=== PATIENT | male | born 1990 | race Hispanic/Latino ===

== ENCOUNTER 2018-05-17 14:50 | Inpatient (IN) | payer OTHER ==
[~2018-05-17] VITALS: Ht 182.9 cm; Wt 91.6 kg
[2018-05-17 15:34] LABS: BASOPHILS % 0.3 % (0.0-1.0); EOSINOPHILS % 0.2 % (0.0-6.0); HEMATOCRIT 48.3 % (38.2-49.6); HEMOGLOBIN 16.6 g/dL (14.0-18.0); LYMPHOCYTES # (AUTO) 1.3 (1.0-3.2); LYMPHOCYTES % 14.1 % (18.0-39.1); MEAN CORPUSCULAR HEMOGLOBIN 30.3 pg (28-32); MEAN CORPUSCULAR HGB CONC 34.4 g/dL (31-35); MEAN CORPUSCULAR VOLUME 88.3 fL (81-99); MONOCYTES # (AUTO) 0.8 (0.2-0.8); MONOCYTES % 8.3 % (4.4-11.3); NEUTROPHILS # (AUTO) 7.1 (2.1-6.9); NEUTROPHILS % 76.8 % (38.7-80.0); PLATELET COUNT 209 x10e3/uL (140-360); RED BLOOD COUNT 5.47 x10e6/uL (4.3-5.7); RED CELL DISTRIBUTION WIDTH 12.8 % (11.7-14.4)
[2018-05-17 15:53] LABS: ALANINE AMINOTRANSFERASE 12 IU/L (0-55); ALBUMIN 4.6 g/dL (3.5-5.0); ALBUMIN/GLOBULIN RATIO 1.2 (0.8-2.0); ALKALINE PHOSPHATASE 70 IU/L (40-150); AMYLASE 66 U/L (25-125); ANION GAP 13.6 mmol/L (8-16); CALCIUM 9.9 mg/dL (8.4-10.2); CARBON DIOXIDE 27 mmol/L (22-29); CHLORIDE 99 mmol/L (98-107); CREATININE, SERUM 0.94 mg/dL (0.72-1.25); EST GLOMERULAR FILTRATION RATE > 60 ML/MIN (60-); GLUCOSE 95 mg/dL (74-118); LIPASE 54 U/L (8-78); POTASSIUM 3.6 mmol/L (3.5-5.1); SODIUM 136 mmol/L (136-145)
[2018-05-17 16:08] LABS: BLOOD UREA NITROGEN 9 mg/dL (7-26); BUN/CREATININE RATIO 10 (6-25)
[2018-05-17 16:15] LABS: CLARITY,URINE SL CLOUDY (CLEAR); COLOR,URINE YELLOW (YELLOW); LEUKOCYTE ESTERASE ,URINE NEGATIVE (NEGATIVE); NITRITE,URINE NEGATIVE (NEGATIVE)
[2018-05-17 16:16] LABS: BILIRUBIN,URINE NEGATIVE (NEGATIVE); KETONES,URINE NEGATIVE (NEGATIVE); PROTEIN,URINE DIPSTICK NEGATIVE (NEGATIVE); URINE UROBILINOGEN 0.2 mg/dL (0.2 - 1)
[2018-05-17 16:33] LABS: HYALINE CASTS 0-1 (0-1); MUCUS,URINE FEW (RARE); RBC,URINE 0-5 /HPF (0-5)
--- NOTE | 2018-05-17 17:44 | Diagnostic Imaging Report ---
EXAM: CT Abdomen and Pelvis WITH contrast INDICATION: \S\right lower abd pain- iv contrast only \[id number] \S\1700 COMPARISON: None. TECHNIQUE: Abdomen and pelvis were scanned utilizing a multidetector helical scanner from the lung base to the pubic symphysis after administration of IV contrast. Coronal and sagittal reformations were obtained. Routine protocol was performed. Scan was performed when during portal venous phase. IV CONTRAST: 100 mL of Isovue-370 ORAL CONTRAST: Water RADIATION DOSE: Total DLP: 492.3 mGy*cm Estimated effective dose: (DLP x 0.015 x size factor) mSv COMPLICATIONS: None FINDINGS: LINES and TUBES: None. LOWER THORAX: Unremarkable HEPATOBILIARY: No focal hepatic lesions. No biliary ductal dilation. GALLBLADDER: No radio-opaque stones or sludge. No wall thickening. SPLEEN: No splenomegaly. PANCREAS: No focal masses or ductal dilatation. ADRENALS: No adrenal nodules KIDNEYS/URETERS: Kidneys enhance symmetrically. No hydronephrosis. No cystic or solid mass lesions. No stones. GI TRACT: No abnormal distention, wall thickening, or evidence of bowel obstruction. The appendix is dilated measuring 1.8 cm and associated with diffuse wall thickening without appendicolith. The extensive inflammatory changes and mild fluid collection surrounding the appendix. No free air. No abscess formation. PELVIC ORGANS/BLADDER: Unremarkable. LYMPH NODES: No lymphadenopathy. VESSELS: Unremarkable. PERITONEUM / RETROPERITONEUM: No free air or fluid. BONES: Unremarkable. SOFT TISSUES: Unremarkable. IMPRESSION: Acute nonperforated appendicitis. Signed by: Dr. Oliva Allen M.D. on 05/17/2018 5:41 PM
[2018-05-17] MEDS ORDERED: MORPHINE SULFATE 2 MG/ML SYR IV PRN (18:00)
[2018-05-17] MEDS ORDERED: CEFOXITIN 1GM/ DEXTROSE 50ML 50 ML IV SCH (18:15)
[2018-05-17] MEDS: SODIUM CHLORIDE 0.9% 1000ML 1,000 ML IV SCH (18:37)
[2018-05-17] MEDS ORDERED: IOPAMIDOL 370 MG/ML 200 ML INFUS..BTL INJ ONE (18:58)
[2018-05-17] MEDS ORDERED: SODIUM CHLORIDE 0.9% 50ML 50 ML ONE ×2 (18:58→19:10)
[2018-05-17] MEDS: CEFOXITIN SOD 1 GM VIAL IV SCH (19:14)
[2018-05-17 20:21] VITALS: BP 106/64
[2018-05-17 20:30] VITALS: BP 106/64
[2018-05-18] VITALS (7 sets, daily range): BP systolic 97–122; BP diastolic 58–81
[2018-05-18] MEDS: MORPHINE SULFATE INJ 4 MG/ML INJ IV PRN ×3 (00:13→17:17)
[2018-05-18] MEDS: ONDANSETRON HCL INJ 2 MG/ML VIAL IV PRN ×4 (00:13→21:58)
[2018-05-18] MEDS: CEFOXITIN SOD 1 GM VIAL IV SCH ×3 (04:28→17:17)
[2018-05-18] MEDS: SODIUM CHLORIDE 0.9% 1000ML 1,000 ML IV SCH ×4 (04:29→21:58)
[2018-05-18 05:26] LABS: BASOPHILS % 0.3 % (0.0-1.0); EOSINOPHILS # (AUTO) 0.1 (0.0-0.4); EOSINOPHILS % 0.8 % (0.0-6.0); HEMATOCRIT 45.2 % (38.2-49.6); HEMOGLOBIN 15.2 g/dL (14.0-18.0); LYMPHOCYTES # (AUTO) 1.7 (1.0-3.2); LYMPHOCYTES % 23.4 % (18.0-39.1); MEAN CORPUSCULAR HEMOGLOBIN 30.1 pg (28-32); MEAN CORPUSCULAR HGB CONC 33.6 g/dL (31-35); MEAN CORPUSCULAR VOLUME 89.5 fL (81-99); MONOCYTES # (AUTO) 0.7 (0.2-0.8); MONOCYTES % 9.8 % (4.4-11.3); NEUTROPHILS # (AUTO) 4.7 (2.1-6.9); NEUTROPHILS % 65.4 % (38.7-80.0); PLATELET COUNT 196 x10e3/uL (140-360); RED BLOOD COUNT 5.05 x10e6/uL (4.3-5.7)
[2018-05-18 05:48] LABS: ANION GAP 14.9 mmol/L (8-16); BLOOD UREA NITROGEN 8 mg/dL (7-26); BUN/CREATININE RATIO 8 (6-25); CALCIUM 9.5 mg/dL (8.4-10.2); CARBON DIOXIDE 26 mmol/L (22-29); CHLORIDE 103 mmol/L (98-107); CREATININE, SERUM 1.04 mg/dL (0.72-1.25); EST GLOMERULAR FILTRATION RATE > 60 ML/MIN (60-); GLUCOSE 84 mg/dL (74-118); POTASSIUM 3.9 mmol/L (3.5-5.1); SODIUM 140 mmol/L (136-145)
[2018-05-18] MEDS ORDERED: BUPIVACAINE HCL 0.5% INJ 30 ML VIAL INJ ONE (06:23)
[2018-05-18] MEDS ORDERED: BUPIVACAINE 0.25%/EPI 30ML SDV INJ ONE (06:33)
--- NOTE | 2018-05-18 07:45 | Consultation ---
DATE OF CONSULTATION: May 17, 2018 CHIEF COMPLAINT: Abdominal pain. HISTORY OF PRESENT ILLNESS: The patient is a 27-year-old male with a 2-day history of pain in the lower abdomen with some nausea, no vomiting, no diarrhea, no fevers. PAST MEDICAL HISTORY: Unremarkable. He has had no previous surgery. No drugs. ALLERGIES: NONE. SOCIAL HISTORY: He does not smoke or drink. REVIEW OF SYSTEMS: No chest pain, shortness of breath or cough. PHYSICAL EXAMINATION VITAL SIGNS: Stable, afebrile. GENERAL: He is awake, alert, in mild to moderate discomfort. HEENT: Sclerae anicteric. NECK: Supple. LUNGS: Clear. HEART: Regular rate and rhythm. ABDOMEN: Soft, with tenderness and guarding in the right lower quadrant. EXTREMITIES: Without cyanosis or edema. LABS: White cell count is 9, hemoglobin 16. Creatinine is 0.9. CT scan showed inflamed appendix without perforation. ASSESSMENT: Acute appendicitis. PLAN: Laparoscopic appendectomy. Attendant risks discussed. Job#: [id number]
[2018-05-18] MEDS ORDERED: MORPHINE SULFATE 2 MG/ML SYR ONE (09:18)
--- NOTE | 2018-05-18 10:09 | History and Physical ---
Mr. Lemus is a pleasant 27-year-old man previously healthy, who presented to the emergency room the evening May 17, 2018, with the complaint of abdominal discomfort. HISTORY OF PRESENT ILLNESS: The patient reports he has had some discomfort in his right lower quadrant for the last day or 2. He reports he studied the internet, and found that he had an 80% chance that he had appendicitis. He visited with Dr. Marion Sosa, who directed him to the emergency room for further studies and evaluation and treatment. PAST MEDICAL HISTORY: Relatively insignificant. He has had no surgeries. No hospitalizations. MEDICATIONS: He takes no medications. FAMILY HISTORY: Insignificant. PERSONAL/SOCIAL HISTORY: He does not smoke and only occasionally drinks beer on a weekend. ALLERGIES: HE HAS NO ALLERGIES. REVIEW OF SYSTEMS: A 14-point review of systems is negative. PHYSICAL EXAMINATION GENERAL: At this time shows a pleasant and alert man who speaks some Tunisian and Burkinan. VITALS: Normotensive. Afebrile. HEENT: Unremarkable. NECK: No jugular venous distention. THORAX: Heart sounds S1 and S2 are equal. No murmurs. LUNGS: Clear. ABDOMEN: Protuberant. Mild tenderness. EXTREMITIES: No cyanosis, clubbing or edema. CT scan suggests nonruptured appendicitis. Laboratory studies are relatively unrevealing including normal BUN, creatinine and glucose. White count 7.1. ASSESSMENT 1. Appendicitis. 2. Status post laparoscopic appendectomy. PLAN: Patient is medically stable. Will monitor him and observe. He will receive surgical antibiotic coverage. Job#: [id number] RI cc:MD MARION GONZALES MD
[2018-05-18] MEDS ORDERED: MIDAZOLAM HCL 2 MG/2 ML VIAL ONE (13:34)
[2018-05-18] MEDS ORDERED: FENTANYL CITRATE/PF 100MCG/2 ML INJ ONE (13:34)
[2018-05-18] MEDS ORDERED: PROPOFOL IV EMULSION 10 MG/ML 20 ML VIAL ONE (14:18)
[2018-05-18] MEDS ORDERED: LIDOCAINE HCL 2% LOCAL INJ 5 ML SDV VIAL INJ ONE (14:18)
[2018-05-18] MEDS ORDERED: DEXAMETHASONE SOD PHOS INJ 4 MG/ML VIAL ONE (14:18)
[2018-05-18] MEDS ORDERED: ROCURONIUM BROMIDE 10 MG/ML 5ML VIAL ONE (14:18)
[2018-05-18] MEDS ORDERED: GLYCOPYRROLATE INJ 1MG/ 5 ML SYR ONE (14:18)
[2018-05-18] MEDS ORDERED: ONDANSETRON HCL INJ 2 MG/ML VIAL ONE (14:18)
[2018-05-18] MEDS ORDERED: NEOSTIGMINE 5 MG/5ML SYR ONE (14:18)
[2018-05-18] MEDS ORDERED: CEFOXITIN SOD 1 GM VIAL ONE (14:18)
[2018-05-18] MEDS ORDERED: KETOROLAC TROMETHAMINE 30 MG/ML VIAL ONE (14:18)
[2018-05-18] MEDS ORDERED: SEVOFLURANE INHAL SOLN 250 ML PEN BTL ONE (14:18)
--- NOTE | 2018-05-18 16:33 | Operative Report ---
DATE OF PROCEDURE: May 18, 2018 PREOPERATIVE DIAGNOSIS: Appendicitis. POSTOPERATIVE DIAGNOSIS: Appendicitis. OPERATIVE PROCEDURE: Laparoscopic appendectomy. ANESTHESIA: General. INDICATIONS: A 27-year-old male with a 2-day history of pain in right lower quadrant with CT scan showing inflamed appendix. Patient consented for laparoscopic appendectomy. Attending risks discussed. PROCEDURE FINDINGS: Appendicitis. DESCRIPTION OF PROCEDURE: Patient was brought to the OR, intubated. Abdomen was prepped and draped in sterile fashion. An infraumbilical incision was made and a 12 mm port inserted, insufflation begun. Under direct vision, other port sites placed in the midepigastric and suprapubic area. The appendix was localized, and the right lower quadrant was noted to be grossly inflamed but nonperforated. Neck of the appendix was isolated and mesoappendix controlled with the LigaSure instrument. The neck of the appendix was then ligated with Endoloop ties of 0 PDS, and the appendix was then amputated just distal to the tie. The mucosa at the stump was cauterized. Appendix was placed in the Endopouch and retrieved out of the peritoneal cavity. The omentum was placed to cover the operative site. All ports removed under direct vision. Fascial closure with 0 Vicryl. Skin was closed with subcuticular stitch. Patient was extubated, transported to the recovery room. Estimated blood loss 5 mL. Job#: [id number] EV
[2018-05-19] VITALS: BP 98/53
[2018-05-19] MEDS: CEFOXITIN SOD 1 GM VIAL IV SCH ×2 (02:05→08:05)
[2018-05-19 08:00] VITALS: BP 98/53
[2018-05-19] MEDS: ONDANSETRON HCL INJ 2 MG/ML VIAL IV PRN (08:05)
[2018-05-19 08:13] VITALS: BP 112/57
[2018-05-19] MEDS ORDERED: TYLENOL WITH C1 EACH PO (11:49)
[2018-05-19 12:28] VITALS: BP 112/67
--- NOTE | 2018-05-21 10:14 | Discharge Summary ---
HISTORY: Mr. Lemus is a pleasant 27-year-old man who presented to the emergency room with a complaint that he had right lower quadrant abdominal discomfort and done research on the Internet, found there was a "80% chance that he had appendicitis." HOSPITAL COURSE: Initial CAT scan suggested appendicitis, and Dr. Rios was consulted who felt that he needed a laparoscopic appendectomy, which was performed on Monday the . Patient tolerated the procedure well and was given clear liquids later on the , and by the patient was able to take a more advance diet, very little abdominal discomfort, and finished surgical antibiotics. He was discharged to home. Cautioned against lifting, and follow up with Dr. Rios in the office and with Dr. Sosa on a regular basis. DISCHARGE DIAGNOSES: 1. Appendicitis. 2. Successful laparoscopic appendectomy. KARINE BUTLER MD Job#: [id number] cc:MD SHANDA CONTEH MD
== END 2018-05-19 13:28 | disposition home or self-care (01) | DRG 340 ==
LOC: ER 14:50 → ERHOLD 18:09 → MED/SURG3 19:59
PROVIDERS: ADMIT Internal Medicine Cardiovascular Disease; ATTEND Internal Medicine Cardiovascular Disease
PROC: 0DTJ4ZZ Resection of Appendix, Percutaneous Endoscopic Approach (ICD-10-PCS; principal; 2018-05-17)
DX: K35.3 Acute appendicitis with localized peritonitis (principal)
CPT/HCPCS: 36415; 74177; 80048; 80053; 81001; 82150; 82948; 83690; 85025; 88304; 96361; 99284; J0694; J1100; J1885; J2001; J2250; J2270; J2405; J7030; Q9967

== ENCOUNTER 2024-04-11 08:12 | Emergency (ER) | payer OTHER ==
[~2024-04-11] VITALS: Ht 175.3 cm; Wt 102.1 kg
[~2024-04-11 08:12] MED LIST: TYLENOL WITH C1 EACH PO
[2024-04-11 08:30] VITALS: PULSE 85; RESP 18; TEMP 98.6; O2SAT 100
[2024-04-11] MEDS ORDERED: NAPROXEN250 MG PO (08:58)
== END 2024-04-11 09:10 | disposition home or self-care (01) ==
LOC: ER 08:19
DX: S16.1XXA Strain of muscle, fascia and tendon at neck level, initial encounter (principal); R51.9 Headache, unspecified
CPT/HCPCS: 99283